=== PATIENT | male | born 1985 | race Two or more races ===

== ENCOUNTER 2019-02-28 12:03 | Emergency (ER) | payer MEDICAID ==
[~2019-02-28] VITALS: Ht 162.6 cm; Wt 113.4 kg
[2019-02-28 12:15] VITALS: BP 135/62
[2019-02-28 13:41] LABS: Alcohol, Urine < 3.0 mg/dL (0-5); Amphetamine Screen, Urine NEGATIVE (NEGATIVE); Barbiturate Scree,Urine NEGATIVE (NEGATIVE); Benzodiazephine Screen, Urine NEGATIVE (NEGATIVE); Cannabinoid Screen, Urine NEGATIVE (NEGATIVE); Cocaine Screen, Urine NEGATIVE (NEGATIVE); Opiate Scree,Urine NEGATIVE (NEGATIVE); Phencyclidine Screen, Urine NEGATIVE (NEGATIVE)
[2019-02-28] MEDS ORDERED: IBUPROFEN 800 MG TAB PO ONE (14:00)
== END 2019-02-28 14:10 | disposition home or self-care (01) ==
LOC: ER 12:17
DX: G51.0 Bell's palsy (principal)
CPT/HCPCS: 70450; 80307; 93005

== ENCOUNTER 2019-03-04 22:36 | Emergency (ER) | payer MEDICAID ==
[~2019-03-04] VITALS: Ht 162.6 cm; Wt 68.0 kg
[2019-03-04 23:37] LABS: Basophils # (auto) 0.1 uL; Eosinophils # (auto) 0 uL; Hematocrit 47.5 % (41.0-53.0); Hemoglobin 16.3 g/dL (13.5-17.5); Lymphocytes # (auto) 3.4 uL; Lymphocytes % (auto) 22.4 % (10.0-50.0); Mean Corpuscular Hemoglobin 29.4 pg (28.0-32.0); Mean Corpuscular Hgb Conc. 34.4 g/dL (32.0-36.0); Mean Corpuscular Volume 85.6 fL (80.0-100.0); Monocytes % (auto) 6.8 % (0.0-12.0); Neutrophils # (auto) 10.5 uL; Neutrophils % (auto) 69.8 % (37.0-80.0); Nucleated Red Blood Cells % 0.1 %; Platelet Count (auto) 281 10^3/uL (140-450); Red Blood Cells 5.55 10^6/uL (4.5-5.90); Red Cell Distribution Width 14.5 % (11.8-14.3)
[2019-03-04 23:56] LABS: Albumin 3.7 g/dL (3.4-5.0); BUN/Creatinine Ratio 13.7; Calcium 8.7 mg/dL (8.5-10.1); Potassium 4.6 mmol/L (3.5-5.1)
[2019-03-04 23:59] LABS: Bilirubin, Total 0.3 mg/dL (0.2-1.0); Total Protein 7.6 g/dL (6.4-8.2)
[2019-03-05] MEDS ORDERED: HYDROcodone-ACET 10/325MG TAB PO ONE (07:30)
[2019-03-05 08:19] VITALS: BP 109/46
== END 2019-03-05 08:37 | disposition home or self-care (01) ==
LOC: ER 22:40
DX: G51.0 Bell's palsy (principal); F41.9 Anxiety disorder, unspecified
CPT/HCPCS: 36415; 80053; 85025